=== PATIENT | male | born 1975 | race Caucasian/White ===

== ENCOUNTER 2020-05-19 09:43 | Inpatient (IN) | payer OTHER, SELFPAY ==
[~2020-05-19 09:43] MED LIST: Iopamidol-370 76% 500 ML 1 ML ONE
[2020-05-19 10:13] LABS: #Eosinphils 0.1 thou/uL (0.0-0.7); #Lymphocytes 0.8 thou/uL (1.20-3.40); #Monocytes 0.5 thou/uL (0.11-0.59); #Neutrophils 7.3 thou/uL (1.40-6.50); %Basophils 0.5 % (0.0-1.0); %Eosinophils 1.6 % (0.0-10.0); %Lymphocytes 8.9 % (21.0-51.0); %Monocytes 5.3 % (0.0-10.0); %Neutrophils 83.7 % (42.0-75.0); Hemoglobin 14.9 g/dL (14.0-18.0); Mean Corpuscular HGB CONC 33.2 g/dL (32.0-36.0); Mean Corpuscular Hemoglobin 30.4 pg (27.0-31.0); Mean Corpuscular Volume 91.6 fL (78.0-98.0); Mean Platelet Volume 6.7 fL (7.4-10.4); Platelet Count 271 thou/uL (130-400); White Blood Cell (WBC) Count 8.7 thou/uL (4.8-10.8)
[2020-05-19 10:30] LABS: Acetaminophen Less than 6.0 mcg/mL (10.0-30.0); Alcohol 60 mg/dL (Less than 10); Salicylate Less than 8.0 mg/dL (15.0-30.0)
[2020-05-19 10:31] LABS: ALT (SGPT) 14 U/L (8-55); AST (SGOT) 22 U/L (5-34); Albumin 3.6 g/dL (3.5-5.0); Alkaline Phosphatase 98 U/L (40-110); Anion Gap 12 mmol/L (10-20); BUN (Urea Nitrogen) 11 mg/dL (8.9-20.6); Bilirubin, Total 0.3 mg/dL (0.2-1.2); Calc. Creatinine Clearance 0 mL/min (70-130); Calcium 8.2 mg/dL (7.8-10.44); Carbon Dioxide 22 mmol/L (22-29); Chloride 106 mmol/L (98-107); Globulin 2.8 g/dL (2.4-3.5); Glucose 116 mg/dL (70-105); Potassium 3.5 mmol/L (3.5-5.1); Protein, Total 6.4 g/dL (6.0-8.3); Sodium 136 mmol/L (136-145)
[2020-05-19] MEDS ORDERED: Morphine 4 MG/ML VIAL ONE (10:43)
[2020-05-19] MEDS ORDERED: hydrALAZINE 20 MG/ML VIAL SLOW IVP PRN (11:59)
[2020-05-19] MEDS ORDERED: Dextrose 5% in Water 1,000 ML IV PRN (11:59)
[2020-05-19] MEDS ORDERED: Morphine 2 MG/ML VIAL SLOW IVP PRN (11:59)
[2020-05-19] MEDS ORDERED: Ondansetron PF 4 MG/2 ML Vial IVP PRN (11:59)
[2020-05-19] MEDS ORDERED: Dextrose 50% Abboject 50 ML SYRINGE SLOW IVP PRN (11:59)
[2020-05-19] MEDS ORDERED: traMADol HCl 50 MG TAB PO PRN (12:03)
[2020-05-19] MEDS ORDERED: traMADol HCl 50 MG TAB ONE (13:23)
[2020-05-19] MEDS ORDERED: Morphine 2 MG/ML VIAL ONE (13:27)
[2020-05-19] MEDS ORDERED: Cyclobenzaprine 10 MG TAB ONE (13:31)
[2020-05-19] MEDS: Cyclobenzaprine 10 MG TAB PO PRN ×2 (13:38→21:50)
[2020-05-19] MEDS ORDERED: Acetaminophen 500 MG TAB ONE (13:41)
[2020-05-19] MEDS ORDERED: Acetaminophen 500 MG TAB PO SCH (14:00)
[2020-05-19] MEDS ORDERED: Fentanyl 100 MCG/2 ML VIAL ONE (14:23)
[2020-05-19] MEDS ORDERED: Fentanyl 100 MCG/2 ML VIAL SLOW IVP SCH (14:30)
[2020-05-19 15:18] LABS: Amphetamine Detected (NotDetected); Cocaine Metabolite Screen Not Detected (NotDetected); Medtox Reader # READER 1; Methamphetamine Detected (NotDetected); Opiate Screen Detected (NotDetected); Phencyclidine (PCP) Not Detected (NotDetected); THC/Cannabinoid Screen Not Detected (NotDetected)
[2020-05-19 15:19] LABS: Barbiturates Screen Not Detected (NotDetected); Benzodiazepine Screen Not Detected (NotDetected); Medtox Control Line Valid? VALID (VALID); Methadone Not Detected (NotDetected); Oxycodone Screen Not Detected (NotDetected); Tricyclic Screen Not Detected (NotDetected)
[2020-05-19] MEDS: Oxazepam 10 MG CAP PO SCH ×2 (15:58→21:51)
[2020-05-19] MEDS: Sodium Chloride 0.9% 1,000 ML IV SCH (15:58)
[2020-05-19] MEDS: Gabapentin 300 MG CAP PO SCH ×2 (15:58→21:51)
[2020-05-19] MEDS: Ibuprofen 600 MG TAB PO SCH ×2 (15:58→21:51)
[2020-05-19 16:20] VITALS: BMI 25.0
[2020-05-19] MEDS: Acetaminophen/Codeine 30-300mg Tablet PO SCH (17:46)
[2020-05-19 17:53] LABS: Phosphorus 3.1 mg/dL (2.3-4.7)
[2020-05-19] MEDS ORDERED: traMADol HCl 50 MG TAB PO SCH (18:00)
[2020-05-19] MEDS: Acetaminophen 325 MG TAB PO SCH (21:49)
[2020-05-19] MEDS: Famotidine/PF 20 mg/2ml Vial SLOW IVP SCH (21:51)
[2020-05-19] MEDS: Senokot S 8.6-50 MG TAB PO SCH (21:52)
[2020-05-19 23:43] LABS: SARS-CoV-2 PCR by NAA Not Detected (NotDetected)
[2020-05-20] MEDS: Acetaminophen/Codeine 30-300mg Tablet PO SCH ×3 (00:53→11:56)
[2020-05-20] MEDS: Acetaminophen 325 MG TAB PO SCH ×3 (00:54→14:55)
[2020-05-20] MEDS: Acetaminophen/Codeine 30-300mg Tablet PO PRN ×2 (00:54→08:41)
[2020-05-20 05:06] LABS: #Eosinphils 0.4 thou/uL (0.0-0.7); #Lymphocytes 0.9 thou/uL (1.20-3.40); #Monocytes 0.7 thou/uL (0.11-0.59); %Basophils 0.2 % (0.0-1.0); %Eosinophils 5.6 % (0.0-10.0); %Lymphocytes 13.1 % (21.0-51.0); %Monocytes 9.7 % (0.0-10.0); %Neutrophils 71.4 % (42.0-75.0); Hemoglobin 13.5 g/dL (14.0-18.0); Mean Corpuscular Hemoglobin 31.3 pg (27.0-31.0); Mean Corpuscular Volume 92.1 fL (78.0-98.0); Mean Platelet Volume 6.6 fL (7.4-10.4); Platelet Count 222 thou/uL (130-400); RBC Distribution Width 11.9 % (11.5-14.5); Red Blood Cell (RBC) Count 4.33 mill/uL (4.70-6.10)
[2020-05-20] MEDS: Oxazepam 10 MG CAP PO SCH ×2 (05:22→14:55)
[2020-05-20] MEDS: Ibuprofen 600 MG TAB PO SCH ×2 (05:22→14:55)
[2020-05-20] MEDS: Sodium Chloride 0.9% 1,000 ML IV SCH ×2 (05:25)
[2020-05-20 05:38] LABS: Anion Gap 12 mmol/L (10-20); BUN (Urea Nitrogen) 10 mg/dL (8.9-20.6); Calc. Creatinine Clearance 145 mL/min (70-130); Calcium 8.1 mg/dL (7.8-10.44); Carbon Dioxide 21 mmol/L (22-29); Chloride 106 mmol/L (98-107); Glucose 103 mg/dL (70-105); Magnesium 1.8 mg/dL (1.6-2.6); Phosphorus 3.7 mg/dL (2.3-4.7); Potassium 3.9 mmol/L (3.5-5.1); Sodium 135 mmol/L (136-145)
[2020-05-20] MEDS: Famotidine/PF 20 mg/2ml Vial SLOW IVP SCH (08:40)
[2020-05-20] MEDS: Gabapentin 300 MG CAP PO SCH ×2 (08:40→14:55)
[2020-05-20] MEDS: Senokot S 8.6-50 MG TAB PO SCH (08:43)
[2020-05-20] MEDS ORDERED: Polyethylene Glycol 3350 17 GM Packet PO SCH (09:00)
[2020-05-20] MEDS ORDERED: Thiamine 100 MG TAB PO SCH (09:00)
[2020-05-20] MEDS ORDERED: Multivitamin W/ Minerals 1 TAB PO SCH (09:00)
[2020-05-20] MEDS ORDERED: Folic Acid 1 MG TAB PO SCH (09:00)
[2020-05-20 11:51] VITALS: BP 120/77; TEMP 97.7
[2020-05-20] MEDS ORDERED: TETANUS AND DIPHTHERIA TOX/PF 0.5 ML DISP.SYRIN IM ONE (11:59)
[2020-05-20] MEDS ORDERED: Famotidine 20 MG TAB PO SCH (21:00)
== END 2020-05-20 17:29 | disposition home or self-care (01) | DRG 964 ==
LOC: EEVIPCON 09:43 → ERS 09:43 → ERHOLD 11:05 → SURG B 15:27
PROVIDERS: ADMIT Surgery; ATTEND Surgery
DX: S22.32XA Fracture of one rib, left side, initial encounter for closed fracture (principal); S22.21XA Fracture of manubrium, initial encounter for closed fracture; S72.402A Unspecified fracture of lower end of left femur, initial encounter for closed fracture; S27.892A Contusion of other specified intrathoracic organs, initial encounter; S36.429A Contusion of unspecified part of small intestine, initial encounter; S62.396A Other fracture of fifth metacarpal bone, right hand, initial encounter for closed fracture; F15.10 Other stimulant abuse, uncomplicated; Z20.822 Contact with and (suspected) exposure to COVID-19; S60.512A Abrasion of left hand, initial encounter; S60.511A Abrasion of right hand, initial encounter; Z89.512 Acquired absence of left leg below knee; V43.53XA Car driver injured in collision with pick-up truck in traffic accident, initial encounter; Y92.410 Unspecified street and highway as the place of occurrence of the external cause
CPT/HCPCS: 36415; 70450; 71260; 72125; 74177; 80048; 80053; 80306; 80307; 83735; 84100; 84484; 85025; 87635; 93005; 94640; 96374; G0390; J2270; J3010; J7030; J7620; Q9967; S0028; U0003; U0005